=== PATIENT | female | born 1985 | race African-American/Black ===

== ENCOUNTER 2016-12-04 09:44 | Emergency (ER) | payer MEDICAID, OTHER ==
[2016-12-04] MEDS ORDERED: ALBUTEROL SULFATE 0.083% NEB 2.5 MG/3 ML AMPUL NEB ONE ×2 (10:05→10:51)
--- NOTE | 2016-12-04 10:45 | ER Document Report ---
ED General - General Chief Complaint: Cough Stated Complaint: COUGH Time Seen by Provider: 12/04/16 10:01 Notes: 31 yo healthy female presents to ED c/o sore throat, cough x 3 days. reports + fever several days ago which has since broke. Daughter was diagnosed with + strep throat yesterday. pt has no hx/o asthma. pt is a smoker. TRAVEL OUTSIDE OF THE [place] IN LAST 30 DAYS: No - HPI Onset: Other - 3 days Onset/Duration: Gradual, Persistent Quality of pain: Achy Pain Level: 4 Associated symptoms: Body/muscle aches, Nonproductive cough, Fever, Headache, Hoarseness, Sore throat. denies: Shortness of breath Exacerbated by: Denies Relieved by: Denies Similar symptoms previously: Yes Recently seen / treated by doctor: No - Related Data Allergies/Adverse Reactions: latex [Latex] Allergy (Verified 12/04/16 09:49) Sulfa (Sulfonamide Antibiotics) Allergy (Verified 12/04/16 09:49) Past Medical History - General Information source: Patient - Social History Smoking Status: Current Every Day Smoker Chew tobacco use (# tins/day): No Frequency of alcohol use: Occasional Drug Abuse: None Lives with: Family Family History: Reviewed & Not Pertinent - Medical History Medical History: Negative Renal/ Medical History: Denies: Hx Peritoneal Dialysis Skin Medical History: Reports Hx Eczema Psychiatric Medical History: Reports: Hx Bipolar Disorder, Hx Depression Past Surgical History: Reports: Hx Tubal Ligation - Immunizations Hx Diphtheria, Pertussis, Tetanus Vaccination: Yes Review of Systems - Review of Systems Constitutional: No symptoms reported EENT: See HPI Cardiovascular: No symptoms reported Respiratory: See HPI Gastrointestinal: No symptoms reported Genitourinary: No symptoms reported Female Genitourinary: No symptoms reported Musculoskeletal: No symptoms reported Skin: No symptoms reported Hematologic/Lymphatic: No symptoms reported Neurological/Psychological: No symptoms reported Physical Exam - Vital signs Vitals: Temp Pulse Resp BP Pulse Ox 97.8 F 85 16 102/71 99 12/04/16 09:49 12/04/16 09:49 12/04/16 09:49 12/04/16 09:49 12/04/16 09:49 Interpretation: Normal - General General appearance: Appears well, Alert In distress: None - HEENT Head: Normocephalic, Atraumatic Eyes: Normal Pupils: PERRL Tympanic membrane: Normal Mucous membranes: Normal, Moist Pharynx: Erythema, Tonsillar hypertrophy. No: Exudate, Peritonsillar abscess, Retropharyngeal abscess, Uvular edema, Potential airway comprom. Neck: Lymphadenopathy - anterior cervical - Respiratory Respiratory status: No respiratory distress Chest status: Nontender Breath sounds: Rhonchi, Wheezing Chest palpation: Normal - Cardiovascular Rhythm: Regular Heart sounds: Normal auscultation Murmur: No - Abdominal Inspection: Normal Distension: No distension Bowel sounds: Normal Tenderness: Nontender Organomegaly: No organomegaly - Back Back: Normal, Nontender - Extremities General upper extremity: Normal inspection, Nontender, Normal color, Normal ROM , Normal temperature General lower extremity: Normal inspection, Nontender, Normal color, Normal ROM , Normal temperature, Normal weight bearing. No: Constantine's sign - Neurological Neuro grossly intact: Yes Cognition: Normal Orientation: AAOx4 [place] Coma Scale Eye Opening: Spontaneous [place] Coma Scale Verbal: Oriented Nev[place] Coma Scale Motor: Obeys Commands Neva Coma Scale Total: 15 Speech: Normal Motor strength normal: LUE, RUE, LLE, RLE Sensory: Normal - Psychological Associated symptoms: Normal affect, Normal mood - Skin Skin Temperature: Warm Skin Moisture: Dry Skin Color: Normal Course - Re-evaluation Re-evalutation: 12/04/16 10:42 H&P c/w pharyngitis. I will treat for strep due to household member with strep. There is no airway compromise, no evidence of peritonsillar abscess. Wheezing has improved after nebulizer treatments. I have low suspicion for pneumonia, pneumothorax, PE. I will treat cough with bronchodilator and oral steroids. Pt is agreeable with plan and stable for discharge. - Vital Signs Vital signs: Temp Pulse Resp BP Pulse Ox 97.8 F 85 16 102/71 99 12/04/16 09:49 12/04/16 09:49 12/04/16 09:49 12/04/16 09:49 12/04/16 09:49 Discharge - Discharge Clinical Impression: Pharyngitis Qualifiers: Pharyngitis/tonsillitis etiology: unspecified etiology Qualified Code(s): J02.9 - Acute pharyngitis, unspecified URI (upper respiratory infection) Qualifiers: URI type: unspecified viral URI Qualified Code(s): J06.9 - Acute upper respiratory infection, unspecified; B97.89 - Other viral agents as the cause of diseases classified elsewhere; B97.89 - Other viral agents as the cause of diseases classified elsewhere Condition: Stable Disposition: HOME, SELF-CARE Instructions: Upper Respiratory Illness ([facility]), Strep Throat ([facility]), Antibiotic Therapy ([facility]), Cough Suppressant & Expectorant Medications, Inhaled Bronchodilators ([facility]), Steroid Medication Additional Instructions: I am treating you for strep throat Please take all antibiotic as prescribed Change your toothbrush in 2 days I am treating your cough with oral steroids and a bronchodilator Take the cough suppressant as needed stop smoking Follow up with your primary care if symptoms persist Return to ER for any worsening Prescriptions: Benzonatate [Tessalon Perles 100 mg Capsule] 200 mg PO Q8HP PRN #40 capsule PRN Reason: Albuterol Sulfate [Albuterol Sulfate 2.5mg/3 mL] 2.5 mg IH Q4H PRN #1 kit PRN Reason: ASTHMA Penicillin V Potassium [Penicillin Vk 500 mg Tablet] 500 mg PO BID #20 tablet Prednisone 20 mg PO BID #16 tablet Forms: Return to Work
[2016-12-04 11:24] VITALS: BP 95/62
== END 2016-12-04 11:25 | disposition home or self-care (01) ==
LOC: ER 09:44
DX: J02.8 Acute pharyngitis due to other specified organisms (principal); B97.89 Other viral agents as the cause of diseases classified elsewhere; R05 Cough; J35.1 Hypertrophy of tonsils; R59.0 Localized enlarged lymph nodes; M79.1 Myalgia; F17.200 Nicotine dependence, unspecified, uncomplicated; Z20.818 Contact with and (suspected) exposure to other bacterial communicable diseases; Z91.040 Latex allergy status; Z88.2 Allergy status to sulfonamides
CPT/HCPCS: 94640; 99283

== ENCOUNTER 2017-04-23 17:11 | Emergency (ER) | payer SELFPAY ==
--- NOTE | 2017-04-23 19:05 | ER Document Report ---
HPI - HPI Patient complains to provider of: low back pain Onset: Other - 1 month Onset/Duration: Gradual, Persistent Pain Level: 3 Context: 31 yo female lifted records off the floor , didn't lift correctly 1 month ago, pain started 1 [address] across. Left felt like pulled muscle into buttocks to back of middle thigh. No previous back injury. No fever, no saddle anesthesia, no IV drugs. Used icy hot. Associated Symptoms: Other - see above Relieved by: Denies Similar symptoms previously: No Recently seen / treated by doctor: No - ROS ROS below otherwise negative: Yes Systems Reviewed and Negative: Yes All other systems reviewed and negative - REPRODUCTIVE Notes: LMP: 3 weeks ago Past Medical History - General Information source: Patient - Social History Smoking Status: Current Every Day Smoker Chew tobacco use (# tins/day): No Frequency of alcohol use: Occasional Drug Abuse: None Occupation: [employer] Lives with: Other - room mate Family History: Reviewed & Not Pertinent Patient has suicidal ideation: No Patient has homicidal ideation: No Renal/ Medical History: Denies: Hx Peritoneal Dialysis Skin Medical History: Reports Hx Eczema Psychiatric Medical History: Reports: Hx Bipolar Disorder, Hx Depression Past Surgical History: Reports: Hx Tubal Ligation - Immunizations Hx Diphtheria, Pertussis, Tetanus Vaccination: Yes Vertical Provider Document - CONSTITUTIONAL Agree With Documented VS: Yes Exam Limitations: No Limitations General Appearance: No Apparent Distress - INFECTION CONTROL TRAVEL OUTSIDE OF THE [place] IN LAST 30 DAYS: No - HEENT HEENT: Normocephalic - NECK Neck: Supple - RESPIRATORY Respiratory: Breath Sounds Normal, No Respiratory Distress O2 Sat by Pulse Oximetry: 99 - CARDIOVASCULAR Cardiovascular: Regular Rate - GI/ABDOMEN Gastrointestinal: Abdomen Non-Tender - MUSCULOSKELETAL/EXTREMETIES Musculoskeletal/Extremeties: MAEW, FROM, Tender - lumbar bilateral paraspinal muscles, left SI joint - NEURO Level of Consciousness: Awake, Alert Motor/Sensory: No Motor Deficit, No Sensory Deficit Deep Tendon Reflexes: 2+ - americo ankle and patellar - DERM Integumentary: Warm, Dry, No Rash Course - Vital Signs Vital signs: Temp Pulse Resp BP Pulse Ox 99.1 F 79 14 95/55 L 99 04/23/17 17:36 04/23/17 17:36 04/23/17 17:36 04/23/17 17:36 04/23/17 17:36 Discharge - Discharge Clinical Impression: low back strain Condition: Good Disposition: HOME, SELF-CARE Instructions: Low Back Pain ([facility]), Warm Packs ([facility]), Muscle Strain ([facility]), Acetaminophen, Anti-Inflammatory Medication ([facility]), Muscle Relaxers ([facility]), Chiropractor, Family Physicians / Practices Additional Instructions: warm compress tylenol motrin muscle relaxers see chiropractor if persists Prescriptions: Ibuprofen [Motrin 600 mg Tablet] 600 mg PO Q8HP PRN #30 tablet PRN Reason: Cyclobenzaprine HCl [Flexeril 10 Mg Tablet] 10 mg PO TIDP PRN #20 tablet PRN Reason: Forms: Return to Work
[2017-04-23] MEDS ORDERED: IBUPROFEN 600 MG TABLET PO ONE (19:21)
[2017-04-23] MEDS ORDERED: ACETAMINOPHEN 325 MG TABLET PO ONE (19:21)
[2017-04-23 19:44] VITALS: BP 99/58
== END 2017-04-23 19:53 | disposition home or self-care (01) ==
LOC: ER 17:11
DX: S39.012A Strain of muscle, fascia and tendon of lower back, initial encounter (principal); X58.XXXA Exposure to other specified factors, initial encounter; F17.200 Nicotine dependence, unspecified, uncomplicated
CPT/HCPCS: 99283